=== PATIENT | male | born 1995 | race Caucasian/White ===

== ENCOUNTER 2017-01-21 04:06 | Emergency (ER) | payer OTHER ==
[2017-01-21 04:11] VITALS: BP 111/61
[2017-01-21] MEDS ORDERED: methylPREDNISolone 125 MG* 2 ML VIAL ONE (04:18)
[2017-01-21] MEDS ORDERED: diPHENhydraMINE IV* 50 MG/ML 1 ml VIAL (BENADRYL) ONE (04:18)
[2017-01-21] MEDS ORDERED: Famotidine IV* 10 MG/ML 2 ML (20 mg) ONE (04:19)
[2017-01-21] MEDS ORDERED: EPINEPHrine AMP 1 MG/ML ONE (04:19)
[2017-01-21] MEDS ORDERED: EPINEPHrine AMP 1 MG/ML IM ONE (04:25)
[2017-01-21] MEDS ORDERED: diPHENhydraMINE IV* 50 MG/ML 1 ml VIAL (BENADRYL) IV ONE (04:25)
[2017-01-21] MEDS ORDERED: Famotidine IV* 10 MG/ML 2 ML (20 mg) IV SLOW PU ONE (04:28)
[2017-01-21] MEDS ORDERED: methylPREDNISolone 125 MG* 2 ML VIAL IV ONE (04:28)
--- NOTE | 2017-01-21 09:18 | ED ---
Eliane Tyler Rebecca, scribed for Eloisa Wynne MD on 01/21/17 at 0423 . Allergic Reaction/Systemic - HPI Summary HPI Summary: Pt is a 21 y/o M accompanied by mother who presents to ED c/o allergic reaction. Reactions began suddenly at 0300 this morning, waking the pt up from sleep, and has been constant since onset. Pt c/o diffuse erythematous hives, tongue swelling and a slightly hoarse voice. Denies difficulty breathing and wheezing. Sx aggravated and alleviated by nothing, unchanged by Benadryl. He reports a bug bite on the L thigh that occurred yesterday (01/20/2017). States he last had some tomatoes to eat. Mother reports a prior similar episode while at college within the last 6 months after which he underwent extensive allergy testing, with no positive results and no conclusive findings for the cause of sx. PMHx asthma - uses an inhaler as needed. - History of Current Complaint Chief Complaint: EDAllergicReaction Hx Obtained From: Patient Onset/Duration: Sudden Onset, Started hours ago, Still Present Timing: Constant Severity Currently: None Pain Intensity: 0 Pain Scale Used: 0-10 Numeric Location: Diffuse Character: Hives Aggravating Factor(s): Nothing Alleviating Factor(s): Nothing Associated Signs And Symptoms: Positive: Hoarseness - Slightly, Rash - total body urticaria, Other: - Tongue swelling; Denies wheezing. Negative: Chest Pain , Cough Wheezing, Difficulty Breathing, Lightheadedness, Throat Tightening - Related Hx Possible Reaction To: Unknown - Allergies/Home Medications Allergies/Adverse Reactions: Allergies Allergy/AdvReac Type Severity Reaction Status Date / Time No Known Allergies Allergy Verified 01/21/17 04:08 PMH/Surg Hx/FS Hx/Imm Hx Previously Healthy: No Endocrine/Hematology History: Denies: Hx Diabetes Cardiovascular History: Denies: Hx Coronary Artery Disease Respiratory History: Reports: Hx Asthma Infectious Disease History: No Infectious Disease History: Denies: Traveled Outside the [place] in Last 30 Days - Family History Known Family History: Positive: Diabetes, Other - asthma - Social History Occupation: Student Lives: With Family Alcohol Use: Occasionally Substance Use Type: Reports: None Smoking Status (MU): Never Smoked Tobacco Review of Systems Constitutional: Negative Positive: Other - Slightly hoarse voice, tongue swelling Cardiovascular: Negative Positive: Other - Denies wheezing and difficulty breathing Gastrointestinal: Negative Positive: Rash - Diffuse erythematous hives Neurological: Negative Psychological: Normal All Other Systems Reviewed And Are Negative: Yes Physical Exam Triage Information Reviewed: Yes Vital Signs On Initial Exam: Initial Vitals Temp Pulse Resp BP Pulse Ox 97.5 F 80 16 111/61 95 01/21/17 04:07 01/21/17 04:07 01/21/17 04:07 01/21/17 04:07 01/21/17 04:07 Vital Signs Reviewed: Yes Appearance: Positive: No Pain Distress, Well-Nourished, Ill-Appearing Skin: Positive: Warm, Other - Total body urticaria, area of erythema that is 6 cm on the L posterior thigh at site of insect bite earlier. No drainage, no red streaking Head/Face: Positive: Other - Lips swollen Eyes: Positive: Conjunctiva Inflammed - Bilateral, Other: - Eyelids swollen ENT: Positive: Other - Swollen lips, NO uvula edema. Negative: Pharyngeal erythema, Nasal congestion, Nasal drainage Neck: Positive: Supple Respiratory/Lung Sounds: Positive: Clear to Auscultation, Breath Sounds Present , Other - No respiratory distress. Negative: Wheezes Cardiovascular: Positive: RRR, Pulses are Symmetrical in both Upper and Lower Extremities, Other - Brisk capillary refill Abdomen Description: Positive: Nontender, Soft. Negative: Splenomegaly Bowel Sounds: Positive: Present Musculoskeletal: Positive: Strength/ROM Intact Neurological: Positive: Sensory/Motor Intact, Alert, Oriented to Person Place, Time Psychiatric: Positive: Normal Diagnostics - Vital Signs Vital Signs Temp Pulse Resp BP Pulse Ox 01/21/17 04:07 97.5 F 80 16 111/61 95 - Laboratory Lab Statement: Any lab studies that have been ordered have been reviewed, and results considered in the medical decision making process. Re-Evaluation - Re-Evaluation First Eval Re-Evaluation Time: 05:51 Change: Improved Comment: The erythema is completely gone and so is the swelling of the eyelids. All of the pt's symptoms are completely resolved. Allergic Reaction Course/Dx - Course Assessment/Plan: Pt is a 21 y/o M accompanied by mother who presents to ED c/o allergic reaction characterized as diffuse erythematous hives, tongue swelling and a slightly hoarse voice since 0300 this morning. Denies difficulty breathing and wheezing. Sx aggravated and alleviated by nothing, unchanged by Benadryl. He reports a bug bite on the L thigh that occurred yesterday (01/20/2017 ). States he last had some tomatoes to eat. Mother reports a prior similar episode while at college within the last 6 months after which he underwent extensive allergy testing, with no positive results and no conclusive findings for the cause of sx. PMHx asthma - uses an inhaler as needed. Pt will be D/C to home with Dx of anaphylaxis and an Rx for Pepcid and prednisone and advised to continue benadryl around the clock for 48 hrs. He understands and agrees. Medications reviewed this visit. - Diagnoses Differential Diagnosis/HQI/PQRI: Positive: Anaphylaxis, Angioedema, Urticaria Provider Diagnoses: Anaphylaxis Discharge - Discharge Plan Condition: Stable Disposition: HOME Prescriptions: Famotidine TAB* [Pepcid 20 MG TAB*] 20 mg PO DAILY #5 tab predniSONE TAB* [Deltasone TAB*] 40 mg PO DAILY #5 tab Patient Education Materials: Anaphylaxis (ED) Referrals: Sae Johnson MD [Primary Care Provider] - 2 Days (definite follow up ) Additional Instructions: You were given benadryl (diphenhydramine) 50mg IV, pepcid 20mg IV and solumedrol 125mg IV and epinephrine 0.3mg IM in the ER and your total body hives improved. You need to continue to take benadryl 50mg around the clock every 6 hrs for the next 48 hrs, and you need to take pepcid and prednisone as directed. Start the pepcid and prednisone today. Keep your epipen and use it if needed for recurrent symptoms. Return to the ER if you have new or worsening symptoms. The documentation as recorded by the Eliane garcia Rebecca accurately reflects the service I personally performed and the decisions made by me, Eloisa Wynne MD.
== END 2017-01-21 06:18 | disposition home or self-care (01) ==
LOC: ED 04:06
DX: T78.40XA Allergy, unspecified, initial encounter (principal); X58.XXXA Exposure to other specified factors, initial encounter; T78.2XXA Anaphylactic shock, unspecified, initial encounter
CPT/HCPCS: 96372; 96374; 99282; J0171; J1200; J2930

== ENCOUNTER → 2018-05-07 15:40 | Emergency (ER) | payer BC, OTHER ==
--- NOTE | 2018-05-07 17:01 | RAD ---
HISTORY: head injury COMPARISONS: None TECHNIQUE: Multiple contiguous axial CT scans were obtained of the head without intravenous contrast. FINDINGS: HEMORRHAGE/INFARCT: There is no hemorrhage or acute infarct. MASSES/SHIFT: There is no mass or shift. EXTRA-AXIAL SPACES: There are no extra-axial fluid collections. SULCI AND VENTRICLES: The sulci and ventricles are normal in size and position for the patient's stated age. CEREBRUM: There are no focal parenchymal abnormalities. BRAINSTEM: There are no focal parenchymal abnormalities. CEREBELLUM: There are no focal parenchymal abnormalities. VESSELS: The vessels are grossly normal. PARANASAL SINUSES: The paranasal sinuses are clear. ORBITS: The orbits are unremarkable. BONES AND SOFT TISSUE: No bone or soft tissue abnormalities are noted. OTHER: None IMPRESSION: NO ACUTE INTRACRANIAL PATHOLOGY.
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
[2018-05-07 17:55] VITALS: BP 133/74
== END | disposition home or self-care (01) ==
LOC: ED 15:40
DX: S09.90XA Unspecified injury of head, initial encounter (principal); W51.XXXA Accidental striking against or bumped into by another person, initial encounter; Y93.72 Activity, wrestling; Y92.9 Unspecified place or not applicable; J45.909 Unspecified asthma, uncomplicated
CPT/HCPCS: 70450; 99281

== ENCOUNTER 2018-12-21 09:34 | Emergency (ER) | payer BC ==
--- OUTSIDE RECORDS SUMMARY | 2018-12-21 09:39 | XMS REPORT | Continuity of Care Document ---
:1995 External Reference #:[id number] Author Name Viviane Hercules O.D. Address [address] [place] [address] Care Team Providers Name Role Phone Omar Mercado M.D. Primary Care Physician Unavailable Payers Date Identification Numbers Payment Provider Subscriber Policy Number: [id number] [employer] Patel Orr PayID: [id number] [address] [place] [address] Advance Directives Description No Information Available Problems Active Problems Provider Date Chronic follicular conjunctivitis Omayra Trujillo O.D. Onset: 01/20/2015 Chronic allergic conjunctivitis Omayra Trujillo O.D. Onset: 09/29/2015 Regular astigmatism Omayra Trujillo O.D. Onset: 01/20/2015 Hypermetropia Omayra Trujillo O.D. Onset: 01/20/2015 Esotropia with accommodative compensation Omayra Trujillo O.D. Onset: 2014 Family History Date Family Member(s) Observation Comments Father No Current Problems Mother Thyroid Disease Social History Type Date Description Comments Sex Unknown Marital Status Legal Status: Never Occupation Student ETOH Use Denies alcohol use Tobacco Use Start: Unknown Patient has never smoked Recreational Drug Use Denies Drug Use Smoking Status Reviewed: 09/21/18 Patient has never smoked Allergies, Adverse Reactions, Alerts Description No Known Drug Allergies Medications Active Medications SIG Qnty Indications Ordering Provider Date Vivance Unknown Artificial Tears as needed Unknown 1-0.3% Solution History Medications No Active Medications Unknown 07/06/2016 - 09/21/2018 Visine Tears as needed Viviane Hercules, 03/07/2016 - 0.2-0.2-1% O.D. 07/05/2016 Solution Pazeo 1 drop both 7.5ml H10.413 Viviane Hrecules, 11/06/2015 - 0.7% Solution eyes daily O.D. 03/07/2016 Prednisolone Acetate 1 drop every 2 15ml H10.413 Omayra Trujillo, 2015 - 1% hours both eyes O.D. 03/07/2016 Suspension x 2days, then 4x/day x 1 week, then 3x/day for 1 week, then 2x/day No Active Medications Unknown 01/20/2015 - 09/29/2015 Immunizations Description No Information Available Vital Signs Description No Information Available Results Description No Information Available Procedures Date Code Description Status 09/21/2018 66256 Est Patient Comprehensive Exam Completed 09/21/2018 101 Level 1 SCL Fit/Refit Completed 08/03/2017 23136 Est Patient Comprehensive Exam Completed 03/08/2016 13380 Determination Of Refractive State Completed 03/08/2016 74514 Est Patient Comprehensive Exam Completed 09/29/2015 15811 Est Patient Intermediate Exam Completed 01/20/2015 24599 Determination Of Refractive State Completed 01/20/2015 10152 New Patient Comprehensive Exam Completed 01/20/2015 101 Level 1 SCL Fit/Refit Completed Encounters Type Date Location Provider Dx Diagnosis Office Visit 11/06/2015 Mateo Handy, Viviane Hercules, 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 If you are a smoker, we strongly recommend that you quit.If you are not a smoker, we strongly recommend that you do not start. You have Hyperopia, or far sightedness, I have givenyou a prescription for glasses and contacts. START USING WARM COMPRESSES WITH GENTLE LID MASSAGE BOTH EYES AFTER YOU TAKE YOUR CONTACTS OUTALSO START USING ARTIFICIAL TEARS DURING THE DAY WHILE WEARINGCONTACTS [id number] Regular astigmatism, bilateralComments:Astigmatism is a common vision condition that happens when a person's cornea is not symmetrical. Dr. Hercules has given you a prescription to correct for this.
[2018-12-21 09:46] VITALS: BP 123/76
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
== END 2018-12-21 10:50 | disposition home or self-care (01) ==
LOC: UCEAST 09:34
DX: R42 Dizziness and giddiness (principal); R94.31 Abnormal electrocardiogram [ECG] [EKG]; F17.290 Nicotine dependence, other tobacco product, uncomplicated
CPT/HCPCS: 99212; G0463

== ENCOUNTER 2018-12-21 11:13 | Emergency (ER) | payer BC ==
[2018-12-21] MEDS ORDERED: NS 0.9% 1000 ML** 1,000 ML IV ONE (11:40)
[2018-12-21] MEDS ORDERED: Ondansetron INJ* 2 MG/ML VIAL IV ONE (11:40)
[2018-12-21] MEDS ORDERED: Meclizine TAB* 12.5 MG PO ONE (11:41)
--- NOTE | 2018-12-21 11:57 | ED ---
Dizziness - HPI Summary HPI Summary: Pt is a 23 y/o M presenting to the ED with a chief complaint of dizziness initially onset this morning when he got out of bed. He states he took a shower but was stumbling and dizzy while in the shower. He drove to work fine, but while at work he became dizzier and almost fell over when rubbing his eyes. He describes the dizziness as room spinning. He then went to [facility] and they recommended coming here d/t an abnormal EKG. He denies lightheadedness, tinnitus , nasal congestion, rhinorrhea, cough, fever, chills, CP, SOB, palpitations, vomiting, head pain, neck pain, or abd pain. - History Of Current Complaint Chief Complaint: EDGeneral Stated Complaint: DIZZINESS PER PT Time Seen by Provider: 12/21/18 11:23 Hx Obtained From: Patient Onset/Duration: Still Present, Suddenly Timing: Hours Severity Initially: Moderate Severity Currently: Moderate Character: Room Spinning Aggravating Factor(s): Nothing Alleviating Factor(s): Nothing Associated Signs And Symptoms: Positive: Unsteady Gait. Negative: Vomiting, Tinnitus, Chest Pain, SOB, Palpitations, Fever, Chills - Allergies/Home Medications Allergies/Adverse Reactions: Allergies Allergy/AdvReac Type Severity Reaction Status Date / Time No Known Allergies Allergy Verified 12/21/18 11:43 Home Medications: Home Medications Lisdexamfetamine(NF) [Vyvanse(NF)] 40 mg PO QAM 12/21/18 [History Confirmed 02/01] PMH/Surg Hx/FS Hx/Imm Hx Previously Healthy: Yes Endocrine/Hematology History: Denies: Hx Diabetes, Hx Thyroid Disease Cardiovascular History: Denies: Hx Coronary Artery Disease, Hx Hypertension Respiratory History: Reports: Hx Asthma Denies: Hx Chronic Obstructive Pulmonary Disease (COPD) GI History: Denies: Hx Ulcer - Surgical History Surgery Procedure, Year, and Place: lasik eye surgery Infectious Disease History: No Infectious Disease History: Denies: Hx Hepatitis, Hx Human Immunodeficiency Virus (HIV), Traveled Outside the [place] in Last 30 Days - Family History Known Family History: Positive: Diabetes, Other - asthma - Social History Alcohol Use: Occasionally Hx Substance Use: Yes Substance Use Type: Reports: Marijuana Hx Tobacco Use: Yes Smoking Status (MU): Light Every Day Tobacco Smoker Type: Smokeless Tobacco Review of Systems Negative: Fever, Chills Negative: Nasal Discharge, Other - tinnitus Negative: Palpitations, Chest Pain Negative: Shortness Of Breath, Cough Negative: Abdominal Pain, Vomiting Negative: Myalgia - head pain, neck pain Neurological: Other - dizziness, room spinning All Other Systems Reviewed And Are Negative: Yes Physical Exam - Summary Physical Exam Summary: GENERAL: Patient is a well-developed and nourished M who is lying comfortable in the stretcher. Patient is not in any acute respiratory distress. HEAD AND FACE: Normocephalic EYES: PERRLA, EOMI x 2. EARS: Hearing grossly intact. MOUTH: Oropharynx within normal limits. NECK: Supple, trachea is midline, no adenopathy, no JVD, no carotid bruit. CHEST: Symmetric, no tenderness at palpation LUNGS: Clear to auscultation bilaterally. No wheezing or crackles. CVS: Regular rate and rhythm, S1 and S2 present, no murmurs or gallops appreciated. ABDOMEN: Soft, non-tender. Bowel sounds are normal. No abnormal abdominal pulsations. EXTREMITIES: Full ROM in all major joints, no edema, no cyanosis or clubbing. NEURO: Alert and oriented x 3. No acute neurological deficits. Speech is normal and follows commands. Cranial nerves II-XII grossly intact, no dysmetria finger to nose. SKIN: Dry and warm Triage Information Reviewed: Yes Vital Signs On Initial Exam: Initial Vitals Temp Pulse Resp BP Pulse Ox 98.2 F 64 16 114/88 99 12/21/18 11:15 12/21/18 11:15 12/21/18 11:15 12/21/18 11:15 12/21/18 11:15 Vital Signs Reviewed: Yes - [place] Coma Scale Best Eye Response: 4 - Spontaneous Best Motor Response: 6 - Obeys Commands Best Verbal Response: 5 - Oriented Coma Scale Total: 15 Diagnostics - Vital Signs Vital Signs Temp Pulse Resp BP Pulse Ox 12/21/18 11:46 78 127/82 12/21/18 11:45 69 128/91 12/21/18 11:44 71 130/82 12/21/18 11:43 71 16 130/82 100 12/21/18 11:31 97.8 F 61 16 111/76 97 12/21/18 11:15 98.2 F 64 16 114/88 99 - Laboratory Result Diagrams: 12/21/18 11:51 12/21/18 11:51 Lab Statement: Any lab studies that have been ordered have been reviewed, and results considered in the medical decision making process. - Radiology CXR Radiology Interpretation Completed By: Radiologist Summary of Radiographic Findings: HYPERINFLATION WHICH CAN BE SEEN WITH COPD OR REACTIVE AIRWAY DISEASE. NO ACTIVE CARDIOPULMONARY DISEASE. ED physician has reviewed this report. - CT Brain CT CT Interpretation Completed By: Radiologist Summary of CT Findings: Negative unenhanced head CT. ED physician has reviewed this report. - EKG 1200 Cardiac Rate: NL - 71bpm EKG Rhythm: Sinus Rhythm ST Segment: Non-Specific Ectopy: None Summary of EKG Findings: EKG at 1200 shows NSR at 71bpm with ST elevation in the lateral and inferior leads. There is minimal [place] depression, c/w pericarditis , as well as benign early repolarization. Re-Evaluation - Re-Evaluation 1st re-eval Re-Evaluation Time: 12:31 Change: Unchanged Comment: Per CALLUM Hull, the pt declined Zofran, stating he is not nauseous. 2nd re-eval Re-Evaluation Time: 13:45 Change: Improved Comment: Pt states he feels better after the Meclizine. Dizzy Course/Dx - Course Course Of Treatment: Pt is a 23 y/o M presenting to the ED with a chief complaint of dizziness initially onset this morning when he got out of bed. He describes the dizziness as room spinning. He then went to [facility] and they recommended coming here d/t an abnormal EKG. He denies lightheadedness, tinnitus , nasal congestion, rhinorrhea, cough, fever, chills, CP, SOB, palpitations, vomiting, head pain, neck pain, or abd pain. EKG at 1200 shows NSR at 71bpm with ST elevation in the lateral and inferior leads. There is minimal [place] depression, c/w pericarditis, as well as benign early repolarization. Pts hematology results show MPV of 7.2, results are otherwise normal. His chemistry results show BUN/Creatinine ratio of 23.2, and total Bilirubin of 1.30. His first troponin is 0.00. His urine and coagulation results are WNL. I spoke with Dr. Roberts at 1248 about the pt's condition who looked at his EKG and stated it is most likely benign early repolarization. CXR shows: HYPERINFLATION WHICH CAN BE SEEN WITH COPD OR REACTIVE AIRWAY DISEASE. NO ACTIVE CARDIOPULMONARY DISEASE. Brain CT shows: Negative unenhanced head CT. As of 1344, the pt reports feeling better. I will be d/c'ing him home with a dx of dizziness. He is stable and agreeable with this plan. - Diagnoses Provider Diagnoses: Dizziness Discharge - Sign-Out/Discharge Documenting (check all that apply): Patient Departure Patient Received Moderate/Deep Sedation with Procedure: No - Discharge Plan Condition: Stable Disposition: HOME Prescriptions: Meclizine TAB* [Antivert 12.5 TAB*] 25 mg PO TID #20 tab Ondansetron ODT TAB* [Zofran 4 MG Odt TAB*] 4 mg PO Q8H PRN #12 tab.odt PRN Reason: Nausea Patient Education Materials: Dizziness (ED) Referrals: Omar Mercado MD [Primary Care Provider] - Additional Instructions: Follow up with your primary care provider within the next 1-3 days. Return to the ED with any new or worsening symptoms. - Billing Disposition and Condition Condition: STABLE Disposition: Home - Attestation Statements Document Initiated by Rahulibe: Yes Documenting Scribe: Shelley Shaver Provider For Whom Jamal is Documenting (Include Credential): Mara Ham MD. Scribe Attestation: IShelley, scribed for Mara Ham MD. on 12/21/18 at 1420. Scribe Documentation Reviewed: Yes Provider Attestation: The documentation as recorded by the Shelley garcia accurately reflects the service I personally performed and the decisions made by me, Scott Ham MD. Status of Scribe Document: Viewed Consult Consult: 1241 - I spoke with Dr. Roberts about the pt's EKG who stated it looks most like benign early repolarization.
[2018-12-21 12:04] LABS: ABS Basophils 0.1 10^3/ul (0-0.2); ABS Eosinophils 0.3 10^3/ul (0-0.6); ABS Monocytes 0.5 10^3/ul (0-0.8); ABS Neutrophils 3.6 10^3/ul (1.5-7.7); Eosinophil % 4.6 %; Hematocrit 44 % (42-52); Lymphocyte % 31.3 %; Mean Corpuscular HGB Conc 34 g/dL (31-36); Mean Corpuscular Hemoglobin 31 pg (27-31); Mean Corpuscular Volume 89 fL (80-94); Mean Platelet Volume 7.2 fL (7.4-10.4); Platelet Count 272 10^3/uL (150-450); Red Blood Count 4.88 10^6 /uL (4.18-5.48); Red Cell Distribution Width 13 % (10-15); White Blood Count 6.5 10^3/uL (3.5-10.8)
[2018-12-21 12:12] LABS: Activated Partial Thrombo Time 35.1 seconds (26.0-38.0); INR 0.96 (0.82-1.09)
[2018-12-21 12:29] LABS: Urine Appearance Clear; Urine Bilirubin Negative (Negative); Urine Blood Negative (Negative); Urine Color Yellow; Urine Glucose Negative (Negative); Urine Ketones Negative (Negative); Urine Nitrite Negative (Negative); Urine Protein Negative (Negative); Urine Specific Gravity 1.013 (1.010-1.030); Urine Urobilinogen Negative (Negative)
[2018-12-21 12:29] LABS: ALT 9 U/L (7-52); AST 14 U/L (13-39); Albumin 4.8 g/dL (3.2-5.2); Alkaline Phosphatase 61 U/L (34-104); Anion Gap 6 mmol/L (2-11); BUN/Creatinine Ratio 23.2 (8-20); Blood Urea Nitrogen 19 mg/dL (6-24); CO2 Carbon Dioxide 29 mmol/L (22-32); Calcium 9.6 mg/dL (8.6-10.3); Chloride 103 mmol/L (101-111); EGFR African American 142.2 (>60); EGFR Non-African American 117.5 (>60); Globulin 2.4 g/dL (2-4); Glucose 118 mg/dL (70-100); Magnesium 2.1 mg/dL (1.9-2.7); Potassium 4.6 mmol/L (3.5-5.0); Sodium 138 mmol/L (135-145); Total Protein 7.2 g/dL (6.4-8.9)
[2018-12-21 12:34] LABS: CKMB ng/mL 0.9 ng/mL (0.6-6.3)
[2018-12-21 13:03] LABS: C Reactive Protein < 1.00 mg/L (<8.01)
[2018-12-21 13:48] VITALS: BP 118/78
[2018-12-21 17:21] LABS: HIV 4th Generation Negative (Negative)
== END 2018-12-21 14:08 | disposition home or self-care (01) ==
LOC: ED 11:13
DX: R42 Dizziness and giddiness (principal); R26.81 Unsteadiness on feet; F17.290 Nicotine dependence, other tobacco product, uncomplicated
CPT/HCPCS: 36415; 70450; 71046; 80053; 81003; 82553; 83605; 83735; 83880; 84484; 85025; 85379; 85610; 85730; 86140; 87389; 93005; 96360; 99283; A9270-GY; J2405

== ENCOUNTER 2018-12-23 08:51 | Emergency (ER) | payer BC ==
[2018-12-23 09:03] VITALS: BP 132/78
[2018-12-23] MEDS ORDERED: Ibuprofen TAB* 400 MG PO ONE (09:10)
[2018-12-23] MEDS ORDERED: Tetan/Diph/Pertus SYR(Tdap)* 0.5 ML SYR(BOOSTRIX) use SYR IM ONE (09:58)
[2018-12-23] MEDS ORDERED: Lidocaine 2% PF * 5 ML VIAL INJ ONE (10:23)
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
== END 2018-12-23 10:55 | disposition home or self-care (01) ==
LOC: UCEAST 08:51
DX: S51.012A Laceration without foreign body of left elbow, initial encounter (principal); S80.212A Abrasion, left knee, initial encounter; S80.211A Abrasion, right knee, initial encounter; S90.416A Abrasion, unspecified lesser toe(s), initial encounter; V19.9XXA Pedal cyclist (driver) (passenger) injured in unspecified traffic accident, initial encounter; Y93.55 Activity, bike riding; Y92.9 Unspecified place or not applicable; Z23 Encounter for immunization; F17.290 Nicotine dependence, other tobacco product, uncomplicated
CPT/HCPCS: 12001; 90471; 90715; 99213; A9270-GY; G0463

== ENCOUNTER 2018-12-30 16:10 | Emergency (ER) | payer BC ==
--- NOTE | 2018-12-30 16:14 | UC ---
Skin Complaint HPI - HPI Summary HPI Summary: 23 yo male presents for suture removal. He had sutures placed to his left elbow on 12/23. Has had no issues such as pain, drainage, edema, or redness. No fevers. - History of Current Complaint Time Seen by Provider: 12/30/18 16:13 Stated Complaint: SUTURE REMOVAL Hx Obtained From: Patient Onset/Duration: Sudden Onset Onset Severity: Mild Current Severity: None Pain Scale Used: 0-10 Numeric - Allergy/Home Medications Allergies/Adverse Reactions: Allergies Allergy/AdvReac Type Severity Reaction Status Date / Time No Known Allergies Allergy Verified 12/30/18 16:16 PMH/Surg Hx/FS Hx/Imm Hx - Additional Past Medical History Additional PMH: ADHD - Surgical History Surgical History: Yes Surgery Procedure, Year, and Place: lasik eye surgery - Family History Known Family History: Positive: Diabetes, Other - asthma - Social History Occupation: Employed Full-time Lives: With Family Alcohol Use: Occasionally Substance Use Type: Marijuana Smoking Status (MU): Light Every Day Tobacco Smoker Type: Smokeless Tobacco Review of Systems All Other Systems Reviewed And Are Negative: Yes Constitutional: Positive: Negative Skin: Positive: Other - LEft elbow sutures in place Respiratory: Positive: Negative Cardiovascular: Positive: Negative Neurovascular: Positive: Negative Neurological: Positive: Negative Psychological: Positive: Negative Physical Exam - Summary Physical Exam Summary: GENERAL: NAD. WDWN. No pain distress. SKIN: LEFT ELBOW: One suture in place. Wound with dried yellow crusting and surrounding granular tissue. NTTP. No warmth, edema, or active drainage. No streaking. NECK: Supple. Nontender. No lymphadenopathy. CHEST: No accessory muscle use. Breathing comfortably and in no distress. CV: Pulses intact. Cap refill <2seconds MSK: Left elbow FROM without pain NEURO: Alert. PSYCH: Age appropriate behavior. Triage Information Reviewed: Yes Vital Signs: Vital Signs: Temp Pulse Resp BP Pulse Ox 98.7 F 81 18 117/76 100 12/30/18 16:14 12/30/18 16:14 12/30/18 16:14 12/30/18 16:14 12/30/18 16:14 Vital Signs Reviewed: Yes Course/Dx - Course Course Of Treatment: One suture removed without difficulty. He was dispensed with bactroban ointment to apply BID for 5 days. Change band- aid daily - Diagnoses Provider Diagnosis: Visit for suture removal Discharge - Sign-Out/Discharge Documenting (check all that apply): Patient Departure All imaging exams completed and their final reports reviewed: No Studies - Discharge Plan Condition: Stable Disposition: HOME Patient Education Materials: Stitches Removal (ED) Referrals: Omar Mercado MD [Primary Care Provider] - Additional Instructions: Cover the area with a band-aid until well healed - Billing Disposition and Condition Condition: STABLE Disposition: Home
[2018-12-30 16:16] VITALS: BP 117/76
[2018-12-30] MEDS ORDERED: Mupirocin 2% OINT* TUBE TOPICAL ONE (16:21)
== END 2018-12-30 16:35 | disposition home or self-care (01) ==
LOC: UCEAST 16:10
DX: Z48.02 Encounter for removal of sutures (principal); F17.210 Nicotine dependence, cigarettes, uncomplicated
CPT/HCPCS: 99212; G0463